=== PATIENT | female | born 1965 | race Caucasian/White ===

== ENCOUNTER 2024-05-26 13:09 | Emergency (ER) | payer BC, OTHER | END 2024-05-26 14:38 | disposition left against medical advice (07) | LOC: BURERS 13:09 | DX: S00.83XA Contusion of other part of head, initial encounter (principal); S00.03XA Contusion of scalp, initial encounter; F17.210 Nicotine dependence, cigarettes, uncomplicated; W01.198A Fall on same level from slipping, tripping and stumbling with subsequent striking against other object, initial encounter ==